=== PATIENT | male | born 1935 | race Caucasian/White ===

== ENCOUNTER 2018-02-14 21:08 | Emergency (ER) | payer MEDICARE ==
[~2018-02-14] VITALS: Ht 188 cm; Wt 113.0 kg
[2018-02-14 21:29] LABS: GLUCOSE,POINT OF CARE 158 MG/DL (70-110)
[2018-02-14] MEDS ORDERED: GABA-531 PO (21:36)
[2018-02-14] MEDS ORDERED: CARV3.1231 PO (21:36)
[2018-02-14] MEDS ORDERED: ASPI81TA39 PO (21:36)
[2018-02-14] MEDS ORDERED: SOTA120T PO (21:36)
[2018-02-14] MEDS ORDERED: CARB1TAB18 PO (21:36)
[2018-02-14] MEDS ORDERED: BUPR150T3 PO (21:36)
[2018-02-14] MEDS ORDERED: MIRT7.5T11 PO (21:36)
[2018-02-14] MEDS ORDERED: FINA1TAB17 PO (21:36)
[2018-02-14 22:15] LABS: BASOPHILS % (AUTO) 0.8 % (0.0-2.0); EOSINOPHILS % (AUTO) 2.1 % (1.0-6.0); HEMATOCRIT 40.7 % (41-53); HEMOGLOBIN 13.3 g/dL (13.5-17.5); LYMPHOCYTES # (AUTO) 0.8 K/uL (1.0-4.8); LYMPHOCYTES % (AUTO) 17.4 % (22.0-44.0); MEAN CORPUSCULAR HEMOGLOBIN 28.2 pg (26.0-34.0); MEAN CORPUSCULAR HGB CONC 32.6 G/dL (31.0-37.0); MEAN CORPUSCULAR VOLUME 87 fL (80-100); MONOCYTES # (AUTO) 0.3 K/uL (0.1-1.0); MONOCYTES % (AUTO) 6.5 % (2.0-9.0); NEUTROPHILS # (AUTO) 3.4 K/uL (1.8-7.7); NEUTROPHILS % (AUTO) 73.2 % (40.0-70.0); PLATELET COUNT (AUTO) 136 K/uL (150-450); RED BLOOD CELL COUNT(AUTO) 4.71 MIL/uL (4.50-5.90); RED CELL DISTRIBUTION WIDTH 13.6 % (11.5-14.5)
[2018-02-14 22:25] LABS: ANION GAP 5 mmol/L (8-16); CALCIUM, TOTAL 8.9 mg/dL (8.8-10.5); CARBON DIOXIDE 35 mmol/L (22-29); CHLORIDE 103 mmol/L (98-107); CREATININE 0.93 mg/dL (0.60-1.30); GLUCOSE,RANDOM 150 mg/dL (70-110); POTASSIUM 3.6 mmol/L (3.5-5.1); SODIUM SERUM 143 mmol/L (136-145); UREA NITROGEN, BLOOD 14 mg/dL (7-18)
[2018-02-14 22:26] LABS: GLOMERULAR FILTR. RATE CALC > 60 mL/min (>60)
[2018-02-14 22:28] LABS: ALBUMIN 3.4 g/dL (3.4-5.0)
[2018-02-14 22:41] LABS: ALANINE AMINOTRANSFERASE 8 U/L (12-78); ALKALINE PHOSPHATASE 97 U/L (46-116); ASPARTATE AMINOTRANSFERASE 15 U/L (15-37); BILIRUBIN,TOTAL 0.8 mg/dL (0.1-1.0); TOTAL PROTEIN, SERUM 6.7 g/dL (6.4-8.2)
[2018-02-15 00:42] LABS: APPEARANCE,URINE CLEAR (CLEAR); BILIRUBIN,URINE NEGATIVE (NEGATIVE); GLUCOSE, URINE (UA) NEGATIVE (NEGATIVE); KETONES,URINE NEGATIVE (NEGATIVE); LEUKOCYTE ESTERASE ,URINE NEGATIVE (NEGATIVE); NITRATE,URINE NEGATIVE (NEGATIVE); OCCULT BLOOD,URINE NEGATIVE (NEGATIVE); PROTEIN,URINE NEGATIVE (NEGATIVE); UROBILINOGEN,URINE 0.2 mg/dL (<=1.0)
[2018-02-15 01:00] VITALS: BP 150/85
== END 2018-02-15 01:11 | disposition home or self-care (01) ==
LOC: EMS 21:10
DX: R42 Dizziness and giddiness (principal); I25.10 Atherosclerotic heart disease of native coronary artery without angina pectoris; Z79.82 Long term (current) use of aspirin
CPT/HCPCS: 70450; 93005